=== PATIENT | female | born 1965 | race African-American/Black ===

== ENCOUNTER 2018-08-24 11:25 | Emergency (ER) | payer OTHER ==
[2018-08-24 11:29] VITALS: TEMP 98.6; BMI 30.4
--- NOTE | 2018-08-24 11:56 | PDOC ---
History of Present Illness - General Chief Complaint: Pain Stated Complaint: RIGHT HAND PAIN Time Seen by Provider: 08/24/18 11:39 History Source: Patient Exam Limitations: No Limitations - History of Present Illness Initial Comments: HPI: 53 y/o female presenting to [facility] complaining of resolved episode of weakness and right hand cramping. Reports feeling a global sense of weakness while brushing teeth. Was able to sit on toilet. Symptoms resolved after a few seconds, and she was able to continue with her morning routine. Also reports an episode of right hand cramping for a few seconds while cooking yesterday. Pt has experienced similar episodes approx. once a month for the past two months. Always in morning shortly after waking and prior to taking blood pressure medication. Denies associated chest pain, SOB, palpitations, flushing, dizziness, or syncope. She was evaluated by her PCP and referred to her Epoxy Specialist for an elevated ESR. Epoxy Specialist said the value was not worrisome and the pt did not require further workup. 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 Discontinued steroid therapy in April. Denies recent illness. Denies cardiac history. PCP: Dr. Lawrence Epoxy Specialist: Dr. Quispe Neurologist: Dr. Russell Medical Hx: - HTN - Giant Cell Arteritis Past History - Past Medical History Allergies/Adverse Reactions: Allergies Allergy/AdvReac Type Severity Reaction Status Date / Time No Known Allergies Allergy Verified 08/24/18 11:29 Home Medications: Ambulatory Orders Hydrochlorothiazide 12.5 mg PO DAILY 08/24/18 Losartan Potassium 25 mg PO DAILY 08/24/18 Pitavastatin Calcium [Livalo] 2 mg PO DAILY 08/24/18 COPD: No HTN: Yes Hypercholesterolemia: Yes Other medical history: head ache,temporal arteritis and BX 1 year ago - Suicide/Smoking/Psychosocial Hx Smoking History: Never smoked Hx Alcohol Use: No Drug/Substance Use Hx: No Review of Systems - Review of Systems Able to Perform ROS?: Yes Comments:: In addition to that documented in the HPI above, the additional ROS was obtained : Constitutional: Denies fevers or chills Eyes: Denies vision changes ENMT: Denies sore throat CV: Denies chest pain Resp: Denies SOB GI: Denies vomiting or diarrhea : Denies painful urination MSK: Denies recent trauma Skin: Denies new rashes Neuro: Denies new numbness or tingling or focal weakness Endocrine: Denies polyuria Heme: Denies bleeding or bruising *Physical Exam - Vital Signs Last Vital Signs Temp Pulse Resp BP Pulse Ox 98.6 F 70 18 120/82 100 08/24/18 11:25 08/24/18 11:25 08/24/18 11:25 08/24/18 11:25 08/24/18 11:25 - Physical Exam Comments: Constitutional: Well-developed, well-nourished, nontoxic female in no acute distress or obvious discomfort. Found semi-fowlers on hospital bed. Alert and oriented x4. Answered all questions appropriately and completely. Speech was non -labored, non-pressured. Head: Normocephalic. No obvious external signs of trauma. Eyes: PERRL. EOMI. Sclerae white. Conjunctiva moist and not injected. EARS: Hearing grossly intact. NOSE: No nasal discharge. THROAT: Oral cavity and pharynx normal. No inflammation, swelling, exudate, or lesions. Teeth and gingiva in good general condition. Neck: Supple, trachea is midline. Cardiovascular: Regular rate and regular rhythm. No murmur, rubs, clicks, or gallops. Peripheral pulses: Radial pulses full. Respiratory: Breathing unlabored. Equal chest rise and fall. Clear to auscultation bilaterally. No stridor, no wheezing, no rhonchi. Gastrointestinal: abdomen is soft, non-tender, non-distended. Neuro: Alert and oriented. Moving all four extremities spontaneously. No focal deficits. Cranial nerves intact. Sensation to all four extremities intact. Normal finger to nose, rapid alternating movements, and heel to hawkins. No pronator drift. Upper and lower extremities: proximal and distal strength 5/5. Shellacker strength 5/5 - equal and symmetric. Plantar flexion and dorsiflexion 5/5. Skin: Warm, dry, and intact. No bruising, rashes, or other lesions. Psych: Affect: appropriate. Mood: normal. Moderate Sedation - Procedure Monitoring Vital Signs: Procedure Monitoring Vital Signs Temperature 98.6 F 08/24/18 11:25 Pulse Rate 70 08/24/18 11:25 Respiratory Rate 18 08/24/18 11:25 Blood Pressure 120/82 08/24/18 11:25 O2 Sat by Pulse Oximetry (%) 100 08/24/18 11:25 ED Treatment Course - LABORATORY CBC & Chemistry Diagram: 08/24/18 12:27 08/24/18 12:27 Medical Decision Making - Medical Decision Making *Reviewed vital signs, nursing notes, and prior visit documentation (if available). 53 y/o female presenting with vague brief and self resolving episodes of hand cramping and generalized weakness. All episodes are brief <10 seconds. No impact on daily activity. No recent illness. Afebrile. Vitals unremarkable for hypotension or tachycardia. Physical exam reassuring. Unremarkable neurologic exam. Low suspicion for ACS, arrhythmia, CVA/TIA, or metabolic derangement. Will obtain EKG, CBC, CMP, and Mag for further evaluation as pt. EKG unremarkable for ectopy. No delta waves, hyperacute T waves, pathologic Q waves, or signs of Brugada. CBC unremarkable for anemia or leukocytosis. CMP and Mag remarkable for borderline hypokalemia. Suspect this is secondary to HCTZ prescription. Low suspicion for actual clinical significance but will replete with PO potassium. Discussed EKG and laboratory results with pt. Answered all questions. Provided return precautions. Pt expressed verbal understanding and agreement with plan to discharge home with outpatient follow up with neurologist. *DC/Admit/Observation/Transfer Diagnosis at time of Disposition: Weakness - Discharge Dispostion Disposition: HOME Condition at time of disposition: Good Decision to Admit order: No - Referrals - Patient Instructions Printed Discharge Instructions: DI for Muscle Weakness Additional Instructions: You were seen today for right hand cramping and brief, resolved generalized weakness. Your blood work showed your potassium was slightly low. This is not likely to cause your symptoms, but you were given potassium pills to correct your level. Otherwise, your blood work was normal. Follow up with Dr. Russell, your neurologist. You can also follow up with your primary care doctor. Go to the nearest emergency department if your condition worsens or you feel like you need additional emergency evaluation. - Post Discharge Activity
[2018-08-24 12:35] LABS: BASO % 1.3 % (0-2.0); EOS % 0.8 % (0-4.5); LYMPH % 29.9 % (8-40); MCH 29.1 pg (25.7-33.7); MCHC 32.5 g/dl (32.0-36.0); MEAN CELL VOLUME 89.7 fl (80-96); MEAN PLT VOLUME 8.3 fl (7.5-11.1); MONO % 5.2 % (3.8-10.2); NEUT % 62.8 % (42.8-82.8); PLATELET COUNT 361 K/MM3 (134-434); RBC 4.46 M/mm3 (3.60-5.2); RDW 14.9 % (11.6-15.6); WHITE BLOOD COUNT 8.6 K/mm3 (4.0-10.8)
[2018-08-24 12:45] LABS: ALBUMIN 3.9 g/dl (3.5-5.0); ALK PHOS 83 U/L (32-92); ANION GAP 7 MMOL/L (8-16); BILIRUBIN,TOTAL 0.4 mg/dl (0.2-1.0); BLOOD UREA NITROGEN 10 mg/dl (7-18); CALCIUM 9.4 mg/dl (8.4-10.2); CHLORIDE 103 mmol/L (98-107); CO2 24 mmol/L (22-28); CREATININE 0.7 mg/dl (0.6-1.3); GLUCOSE,RANDOM 88 mg/dl (74-106); MAGNESIUM 2.2 mg/dL (1.8-2.4); POTASSIUM 3.2 mmol/L (3.5-5.1); SGOT/AST 29 U/L (10-42); SGPT/ALT 26 U/L (10-40); SODIUM 134 mmol/L (136-145); TOT PROT 7.4 g/dl (6.4-8.3)
--- NOTE | 2018-08-24 13:02 | PDOC ---
Attending Attestation - Resident Resident Name: Ash Mendosa - ED Attending Attestation I have performed the following: I have examined & evaluated the patient, The case was reviewed & discussed with the resident, I agree w/resident's findings & plan, Exceptions are as noted - HPI HPI: 08/24/18 12:58 53 yo F with h/o prior temp arteritis , HTN here wtih c/o episode of feeling lightheaded. pt states over last 2 months she has been feeling weak or lightheaded in am like she was about to faint. no vertigo. no focal weakness. no vision change or changes to speech. also noticed yesterday while cooking her right hand sort of tightened up and becamse locked for few seconds. no focal shaking or tremor or seizure like activity. ho h/o carpal tunnel. had one recurrent episode also only lasting a few second. no f/c no cp no palpitations. no other comlaints. 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 - Physicial Exam PE: 08/24/18 13:00 awake alert lungs clear bilaterally heart rrr no mrg abd soft nt nd.ext wwp . nuero alert oriented x 3. CN II - XII inatct. no temp art tenderness. strength 5 /5 all four ext. sensation intact. negative tinels, phalen. 2 + radial / ulnar pulses bilaterally med ulnar and rad strength intact 5/5. speech clear. - Medical Decision Making 08/24/18 13:01 differential anemia. electrolyte abnormality, raynauds or rheumatoid considered. rec outpt followup with [facility] [employer] [employer] and nuerologist. also likley due to recent changes in bp meds which were increased 2 month ago when sxs startd. will refer to follow up with dr. graves. Heart Score/ECG Review #1 General ECG Interpretation: Sinus Rhythm, Normal Rate, Normal Intervals, No acute ischemic changes (TWI III only)
[2018-08-24] MEDS ORDERED: POTASSIUM CITRATE/CITRIC ACID 2 MEQ/ML ML PO ONE (13:35)
[2018-08-24] MEDS ORDERED: POTASSIUM CHLORIDE TABS 20 MEQ TABLET.ER (FP) PO ONE ×2 (13:37→13:39)
[2018-08-24 13:47] VITALS: BP 108/71; PULSE 68
--- NOTE | 2018-08-25 16:24 | EKG ---
Test Reason : Blood Pressure : / mmHG Vent. Rate : 068 BPM Atrial Rate : 068 BPM P-R Int : 148 ms QRS Dur : 092 ms QT Int : 412 ms P-R-T Axes : 032 -15 012 degrees QTc Int : 438 ms NORMAL SINUS RHYTHM MINIMAL VOLTAGE CRITERIA FOR LVH, MAY BE NORMAL VARIANT BORDERLINE ECG NO PREVIOUS ECGS AVAILABLE Confirmed by AKIRA HADLEY, TRENT ([id number]) on 08/25/2018 4:23:43 PM Referred By: ENA LYNCH Confirmed By:TRENT CHAMPION MD
== END 2018-08-24 14:03 | disposition home or self-care (01) ==
LOC: FER 11:25
DX: R53.1 Weakness (principal); I10 Essential (primary) hypertension; E78.00 Pure hypercholesterolemia, unspecified
CPT/HCPCS: 36415; 80053; 83735; 85025; 93005; 99283-25